=== PATIENT | male | born 1975 | race Caucasian/White ===

== ENCOUNTER → 2019-03-05 18:37 | Outpatient (CLI) | payer OTHER, SELFPAY ==
[2019-03-05 20:07] LABS: Amphetamine/Metha Screen,Urine Negative ng/mL (<1000); Barbiturates Screen,Urine Negative ng/mL (<200); Benzodiazepines Screen,Urine Positive ng/mL (<200); Cannabinoid Screen,Urine Negative ng/mL (<50); Cocaine Screen,Urine Negative ng/mL (<300); Methadone Screen,Urine Negative ng/mL (<300); Opiate Screen,Urine Negative ng/mL (<300); Phencyclidine Screen,Urine Negative ng/mL (<25)
== END ==
PROVIDERS: Visit Provider Nurse Practitioner Family
DX: Z79.899 Other long term (current) drug therapy (principal)
CPT/HCPCS: 80305

== ENCOUNTER → 2021-04-26 15:51 | Outpatient (CLI) | payer OTHER, SELFPAY ==
[2021-04-26 16:57] LABS: Basophils # 0.1 K/mm3 (0-0.2); Basophils % 0.7 % (0.1-2.0); Eosinophils # 0.1 K/mm3 (0.0-0.4); Eosinophils % 0.7 % (0.1-12.0); Hematocrit 42.4 % (42.0-52.0); Hemoglobin 14.3 g/dL (14.1-18.0); Lymphocytes # 1.9 K/mm3 (0.7-4.5); Lymphocytes % 21.9 % (10-50); Mean Corpuscular HGB Conc 33.7 g/dL (31.8-35.4); Mean Corpuscular Hemoglobin 30.6 pg (27.0-31.2); Mean Corpuscular Volume 90.9 fl (80-94); Mean Platelet Volume 8.2 fl (7.4-10.4); Monocytes # 0.5 K/mm3 (0.1-1.0); Monocytes % 5.7 % (1.7-9.3); Platelet Count 258 K/mm3 (142-424); Red Blood Count 4.66 M/mm3 (4.60-6.20); Red Cell Distribution Width 13.5 % (11.5-17.5); White Blood Count 8.5 K/mm3 (4.8-10.8)
[2021-04-26 18:50] LABS: Alanine Aminotransferase 45 U/L (12-78); Albumin Level 4.6 g/dl (3.5-5.0); Albumin/Globulin Ratio 1.8 (1.1-1.8); Alkaline Phosphatase 63 U/L (38-126); Anion Gap 16.7 mEq/L (5-15); Aspartate Amino Transferase 42 U/L (17-59); Bilirubin,Total 0.5 mg/dl (0.2-1.3); Blood Urea Nitrogen 12 mg/dl (9-20); Calcium 9.2 mg/dl (8.4-10.2); Carbon Dioxide 31 mmol/L (22.0-30.0); Chloride 104 mmol/L (98-107); Chol/HDL Ratio 3.6 (1-3.5); Cholesterol 227 mg/dl (140-200); Estimated Glomerular Filt Rate 72 ml/min (>60); GFR (African American) 87 ML/MIN (>60); Globulin 2.6 g/dL (1.3-3.2); Glucose 78 mg/dl (74-100); HDL Cholesterol 63 mg/dl (40-60); Potassium 4.7 mmoL/L (3.5-5.1); Sodium 147 mmol/L (136-145); Total Protein,Serum 7.2 g/dl (6.3-8.2); Triglycerides 172 mg/dl (30-150); VLDL Cholesterol 34 mg/dL (0-40)
[2021-04-26 19:02] LABS: Direct LDL Cholesterol 149.11 mg/dL (100-129)
[2021-04-26 19:03] LABS: 25-OH Vitamin D, Total 25.6 ng/mL (30-100)
[2021-04-26 19:07] LABS: T4 (Thyroxine) 6.3 ug/dl (5.53-11.0)
[2021-04-26 19:20] LABS: Thyroid Stimulating Hormone 4.19 uIU/mL (0.465-4.68)
== END ==
PROVIDERS: Visit Provider Nurse Practitioner Family
DX: F41.9 Anxiety disorder, unspecified (principal); R53.83 Other fatigue; E55.9 Vitamin D deficiency, unspecified
CPT/HCPCS: 36415; 80053; 80061; 82306; 84436; 84443; 85025

== ENCOUNTER 2021-05-29 12:22 | Emergency (ER) | payer OTHER, SELFPAY ==
[2021-05-29 12:56] VITALS: BP 164/101; PULSE 70; RESP 14; TEMP 36.7; O2SAT 100; BMI 27.4
--- NOTE | 2021-05-29 13:09 | HMH.EDUTC ---
[facility] [place] Clinical Impression: Left otitis media Qualifiers: Otitis media type: suppurative Chronicity: acute Recurrence: non-recurrent Spontaneous tympanic membrane rupture: without spontaneous rupture Qualified Code(s): H66.002 - Acute suppurative otitis media without spontaneous rupture of ear drum, left ear Disposition: Home, Self-Care Condition on Discharge: Good Instructions: DI for Otitis Media (Middle Ear Infection)-Child Prescriptions: Fluticasone Propionate [Flonase 50mcg nasal spray 16gm] 1 spr NS BID 14 Days #1 ml Transmission Status: Pending to [facility] # Cefdinir [Omnicef 300mg Capsule] 300 mg PO BID #20 cap Transmission Status: Pending to [facility] # predniSONE [Prednisone 20mg Tab] 20 mg PO BID 5 Days #10 tab Transmission Status: Pending to [facility] # Pseudoephedrine HCl [Sudafed 24-Hour] 1 tab PO DAILY 14 Days #14 tab Transmission Status: Pending to [facility] # Referrals: Mike Bobo MD [Primary Care Provider] - Time of Disposition: 13:21 Medical Decision Making - Garett Inquiry Pt receiving controlled substance: No Vital Signs: 05/29/21 12:56 Temperature 98.1 F Temperature Source Oral Pulse Rate [Left] 70 Respiratory Rate 14 Blood Pressure [Right Arm] 164/101 H Blood Pressure Mean [Right Arm] 122 02 Sat by Pulse Oximetry 100 [facility] [place] - General Stated complaint: left ear pain, dizzy Time Seen by Provider: 05/29/21 13:10 Mode of Arrival: Ambulatory Source of Information: Patient Limitations: No Limitations Description of Symptoms (Recalled from Triage Doc. by RN): L ear loss of hearing and pain HEENT Symptoms (Recalled from RN notes): Yes (L ear pain and hearing loss) Resp Symptoms (Recalled from RN notes): No Skin Symptoms (Recalled from RN notes): No MS Symptoms (Recalled from RN notes): No Functional Status (Recalled from RN notes): na - History of Present Illness Provider Complaint: Left ear pain for a while . Ruptured left ear drum a year and a half ago and it hasn't been the same since. Ear is painful, feels a lot of pressure, and can't hear. Onset (ago): day(s) (3) Relieving factors: none Exacerbating factors: none Associated symptoms: denies other symptoms Treatments prior to arrival: none - Related Data Previous Rx's Medication Instructions Recorded nystatin 100,000 unit/gram topical 1 applic TOPICAL BID #30 g 11/29/20 ointment ergocalciferol (vitamin D2) 1,250 50,000 unit PO QWEEK #7 cap 05/10/21 mcg (50,000 unit) capsule chlordiazepoxide HCl 10 mg capsule 10 mg PO Q8H #90 cap 05/25/21 tramadol 50 mg tablet 100 mg PO TID #180 tab 05/25/21 Cefdinir [Omnicef 300mg Capsule] 300 mg PO BID #20 cap 05/29/21 Fluticasone Propionate [Flonase 1 spr NS BID 14 Days #1 ml 05/29/21 50mcg nasal spray 16gm] Pseudoephedrine HCl [Sudafed 1 tab PO DAILY 14 Days #14 tab 05/29/21 24-Hour] predniSONE [Prednisone 20mg 20 mg PO BID 5 Days #10 tab 05/29/21 Tab] Allergies Allergy/AdvReac Type Severity Reaction Status Date / Time No Known Allergies Allergy Verified 05/25/21 16:30 - Worker's Comp Is this a Worker's Comp case?: No [facility] History - Hepatitis A Screen Drug use history?: No High risk sexual behaviors?: No History of sexually transmitted infection?: No Currently employed?: No Childcare worker?: No Do you have indoor plumbing?: Yes Do you have electricity?: Yes Attestation statement:: This patient has been screened for Hepatitis A risk factors. I have reviewed the patient's past medical history: Yes Medical History: Reports:: Anxiety Denies:: Cancer, Diabetes Mellitus Type 1, Diabetes Mellitus Type 2, Internal Pacemaker, MRSA Laterality Cases: Bilateral: Other Other Surgeries: Yes: Other. No: Pacemaker Amputation: No Fractures: No Comment: facial mandible reconstruction - Social History Smoking Status: Never smoker Tobacco Type: smokeless
[2021-05-29 13:30] VITALS: BP 164/104; PULSE 70; RESP 14; TEMP 36.7
== END 2021-05-29 13:34 | disposition home or self-care (01) ==
PROVIDERS: Emergency Provider Physician Assistant; PCP Emergency Medicine
DX: H66.002 Acute suppurative otitis media without spontaneous rupture of ear drum, left ear (principal); F41.9 Anxiety disorder, unspecified
CPT/HCPCS: 99202; G0463

== ENCOUNTER → 2021-08-15 15:28 | Outpatient (CLI) | payer OTHER, SELFPAY ==
--- NOTE | 2021-08-15 15:28 | CT_ITS ---
PROCEDURE: CT TEMPORAL BONE WITHOUT CLINICAL HISTORY: COMPARISON: No exams were available for comparison TECHNIQUE: Axial images obtained with sagittal and coronal reformats. All CT scans at the facility use one or more dose reduction, viz: automated exposure control, ma/kV adjustment per patient size (including targeted exams where dose is matched to indication, i.e. head), or iterative reconstruction technique. FINDINGS: There is opacification the antrum the left mastoid sinus. No scutal erosion. The left middle ear does not appear opacified. Minimal amount fluid noted in the inferior aspect of the left mastoid sinus. The right mastoid sinus and middle ear canal have an unremarkable appearance. The paranasal sinuses are unremarkable except for a small retention cyst or globule of mucus in the anterior aspect of the right sphenoid sinus. No sinus air-fluid level. The orbits, parotids and submandibular glands are unremarkable. There are few scattered small cervical nodes. Unremarkable right TMJ. Bone plate is present along posterior aspect of the left mandibular ramus.. IMPRESSION: Opacified left mastoid antrum and minimal opacification of the inferior tip of the left mastoid sinus without obvious scutal erosion. An early cholesteatoma would be a consideration. No bony erosion evident at this time. Dictated by: Robert Collins MD 08/16/2021 09:55 Robert Collins MD in [place] 08/16/2021 09:55
== END ==
PROVIDERS: PCP Emergency Medicine; Visit Provider Otolaryngology
DX: H60.542 Acute eczematoid otitis externa, left ear (principal); H66.002 Acute suppurative otitis media without spontaneous rupture of ear drum, left ear; H71.92 Unspecified cholesteatoma, left ear
CPT/HCPCS: 70480

== ENCOUNTER → 2021-10-17 09:20 | Outpatient (CLI) | payer OTHER, SELFPAY ==
[2021-10-18 06:59] LABS: Covid-19 Nasal PCR Sendout Lex NOT DETECTED
== END ==
PROVIDERS: PCP Nurse Practitioner Family; Visit Provider Nurse Practitioner
DX: Z20.822 Contact with and (suspected) exposure to COVID-19 (principal)
CPT/HCPCS: C9803; U0004; U0005

== ENCOUNTER 2021-10-26 15:37 | Outpatient (RCR) | payer OTHER, SELFPAY ==
--- NOTE | 2021-10-26 16:50 | HMH.PTOPEV ---
PT Outpatient Evaluation Rehab PT Outpatient Evaluation Start: 10/26/21 16:33 Freq: Status: Active Protocol: Document 10/26/21 16:33 JUDAH (Rec: 10/26/21 16:50 CHRISTINECARMITA [id number]) Electronically Signed By Cam Jose, PT 10/26/21 16:33 Outpatient Therapy Subjective History Subjective History This is the initial Physical Therapy vestibular evaluation. Pt is a 46 y/o male referred to PT for c/o feeling off balance and having c/o visual disturbances. Pt stateshe began having ear issues ~ 1 and 1/2 years ago, and in that time has ruptured an ear drum due to infection. Pt c/o feeling like he is moving when he is not, and has c/o visual sensitivity to movement and moving objects. Chief Complaint Other Symptoms Relieved By Rest/Positioning Symptoms Aggravated By Bending/Stooping,Physical Activity,Twisting,Walking Prior Functional Limitations None Current Functional Limitations Driving,Sleeping,Recreation Activity,Walking,Balance Balance Eval Chief Complaint vertigo No Did you feel dizzy, unsteady or faint? Yes Activity at onset movement Prior Functional Limitations Prior Functional [place] fully independent Current Functional Limitations Comment decreased stability Hx of Falls Hx Falls No Gait/Posture Asssessment General Gait Observation Wide Based Gait,Shuffling Step Assistive Devices None / NA Level of Transfer Assist Independent Hip Observation in Gait Swing Externally Rotated Hip Observation in Gait Stance Externally Rotated Ankle/Foot Observation in Gait Swing Decreased Foot Clearance Ankle/Foot Observation in Gait Stance Flatfoot Contact,Decreased Push Off Hip Posture Standing Position (L) Externally Rotated,(R) Externally Rotated Body Alignment Posture Rigid,Thoracic Kyphosis Nystagmus Nystagmus Description Left Direction,Geotropic,Right Torsion,Latency - Delayed Oculomotor Gaze Oculomotor Gaze Nml: Saccades Cover/Uncover Cross Cover Abn: Vergence Smooth Pursuit VOR Cancellation Dynamic Gait Index Test Protocol
== END 2021-10-26 15:40 | disposition home or self-care (01) ==
LOC: PT 15:37
PROVIDERS: PCP Nurse Practitioner Family; Visit Provider Otolaryngology
DX: H60.40 Cholesteatoma of external ear, unspecified ear (principal); H66.92 Otitis media, unspecified, left ear
CPT/HCPCS: 97163

== ENCOUNTER → 2021-12-14 15:16 | Outpatient (CLI) | payer OTHER, SELFPAY ==
--- NOTE | 2021-12-14 15:19 | CT_ITS ---
FINAL REPORT TECHNIQUE: Axial CT images were obtained through the TMJs/orbits/sella turcica/middle ear. Coronal and sagittal reformats were obtained. This study was performed with techniques to keep radiation doses as low as reasonably achievable (ALARA). Individualized dose reduction techniques using automated exposure control or adjustment of mA and/or kV according to the patient's size were employed. CLINICAL HISTORY: left om FINDINGS: Thin section axial CT images were performed through the TMJs and inner ear structures. Coronal and sagittal reformatted images were submitted.This study was performed with techniques to keep radiation doses as low as reasonably achievable (ALARA). Individualized dose reduction techniques using automated exposure control or adjustment of mA and/or kV according to the patient's size were employed. Right side: The internal auditory canal and external auditory canal are unremarkable. The middle ear structures are unremarkable. The ossicles are intact. The inner ear structures are intact. The mastoid antrum and mastoid air cells are normal. Left-sided colon the internal auditory canal and external auditory canal are unremarkable. There is abnormal soft tissue in the anterior aspect of the middle ear measuring 7 x 6 mm in maximal axial dimensions. This may represent localized mucosal thickening. This does not have the typical appearance of a cholesteatoma. There is erosion of the head of the malleus. The incus is intact. The mastoid antrum and mastoid air cells are normal. IMPRESSION: Abnormal soft tissue in the anterior aspect of the left middle ear may represent localized mucosal thickening. This does not have the typical appearance of cholesteatoma. Erosion of the head of the malleus of the left inner ear. Reviewed, Interpreted and Dictated by Angel Flores III, MD Transcribed by Den De La Cruz Authenticated by Angel Flores III, MD on 12/15/2021 08:13:19 AM [facility][1]
== END ==
PROVIDERS: PCP Nurse Practitioner Family; Visit Provider Otolaryngology
DX: H66.92 Otitis media, unspecified, left ear (principal)
CPT/HCPCS: 70480

== ENCOUNTER 2023-09-25 12:52 | Outpatient (CLI) | payer OTHER, SELFPAY ==
[2023-09-25 18:04] LABS: Barbiturates Screen,Urine Negative ng/ml (<200); Cannabinoid Screen,Urine Negative ng/ml (<50); Cocaine Screen,Urine Negative ng/ml (<300); Methadone Screen,Urine Negative ng/ml (<300); Opiate Screen,Urine Negative ng/ml (<300); Phencyclidine Screen,Urine Negative ng/ml (<25)
[2023-09-25 18:10] LABS: Benzodiazepines Screen,Urine Positive ng/ml (<200)
[2023-09-26 14:46] LABS: Amphetamine/Metha Screen,Urine Negative ng/ml (<1000)
== END 2023-09-25 23:59 ==
LOC: LAB.DROPOF 12:52
PROVIDERS: PCP Internal Medicine; Visit Provider Internal Medicine
DX: G89.29 Other chronic pain (principal); M54.9 Dorsalgia, unspecified
CPT/HCPCS: 80307

== ENCOUNTER 2023-10-29 08:23 | Emergency (ER) | payer OTHER, SELFPAY ==
[2023-10-29 08:24] VITALS: BP 165/123; PULSE 93; RESP 15; TEMP 37.3; O2SAT 95; BMI 28.4
[2023-10-29 08:38] VITALS: PULSE 96; O2SAT 96
--- NOTE | 2023-10-29 08:41 | XR_ITS ---
FINAL REPORT CLINICAL HISTORY: pain FINDINGS: RIGHT FOOT 3 views of the right foot were obtained. There is no acute fracture or dislocation. Visualized joint spaces are normally aligned. Soft tissues are unremarkable. IMPRESSION: No acute bony abnormality. Reviewed, Interpreted and Dictated by Angel Flores III, MD Transcribed by Jennifer Abbott Authenticated and [facility]
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
[2023-10-29 09:00] VITALS: BP 160/122; PULSE 78; RESP 20; O2SAT 97
[2023-10-29] MEDS: IBUPROFEN 800 MG TABLET PO (09:07)
[2023-10-29 09:30] VITALS: BP 179/125; PULSE 85; RESP 20; O2SAT 96
[2023-10-29 10:09] VITALS: BP 194/151; PULSE 90; RESP 16; TEMP 36.7
== END 2023-10-29 10:10 | disposition home or self-care (01) ==
PROVIDERS: Emergency Provider Emergency Medicine; PCP Internal Medicine
DX: M79.671 Pain in right foot (principal); I10 Essential (primary) hypertension
CPT/HCPCS: 73620; 99283

== ENCOUNTER 2023-12-10 12:49 | Outpatient (CLI) | payer OTHER, SELFPAY ==
[2023-12-10 13:00] LABS: Hemoglobin A1C 5.4 % (4.0-6.0)
[2023-12-10 13:09] LABS: Erythrocyte Sedimentation Rate 6 mm/hr (0-15)
[2023-12-10 13:11] LABS: Basophils # 0.1 K/mm3 (0-0.2); Eosinophils # 0.1 K/mm3 (0.0-0.4); Eosinophils % 1.4 % (0.1-12.0); Hematocrit 49.6 % (42.0-52.0); Hemoglobin 16.5 g/dL (14.1-18.0); Lymphocytes # 1.4 K/mm3 (0.7-4.5); Lymphocytes % 16.2 % (10-50); Mean Corpuscular HGB Conc 33.3 g/dL (31.8-35.4); Mean Corpuscular Hemoglobin 31.8 pg (27.0-31.2); Mean Corpuscular Volume 95.5 fl (80-94); Mean Platelet Volume 9.8 fl (7.4-10.4); Monocytes # 0.5 K/mm3 (0.1-1.0); Monocytes % 5.5 % (1.7-9.3); Neutrophils # 6.6 K/mm3 (1.8-7.8); Neutrophils % 75.9 % (37.0-80.0); Platelet Count 301 K/mm3 (142-424); White Blood Count 8.7 K/mm3 (4.8-10.8)
[2023-12-10 13:42] LABS: Chol/HDL Ratio 5.1 (1-3.5); Cholesterol 286 mg/dl (140-200); HDL Cholesterol 56 mg/dl (40-60); Triglycerides 152 mg/dl (30-150); VLDL Cholesterol 30 mg/dL (0-40)
[2023-12-10 13:47] LABS: Alanine Aminotransferase 51 U/L (12-78); Albumin Level 5.1 g/dl (3.5-5.0); Albumin/Globulin Ratio 1.8 (1.1-1.8); Alkaline Phosphatase 94 U/L (38-126); Anion Gap 16.7 mEq/L (5-15); Aspartate Amino Transferase 46 U/L (17-59); Bilirubin,Total 0.7 mg/dl (0.2-1.3); Blood Urea Nitrogen 10 mg/dl (9-20); Calcium 10.5 mg/dl (8.4-10.2); Carbon Dioxide 30 mmol/L (22.0-30.0); Chloride 103 mmol/L (98-107); Estimated Glomerular Filt Rate 89 ml/min (>60); GFR (African American) 108 ML/MIN (>60); Globulin 2.9 g/dL (1.3-3.2); Glucose 107 mg/dl (74-100); Magnesium 2.1 mg/dl (1.6-2.3); Potassium 4.7 mmoL/L (3.5-5.1); Sodium 145 mmol/L (136-145); Uric Acid 5.8 mg/dl (3.5-8.5)
[2023-12-10 14:13] LABS: Thyroid Stimulating Hormone 3.73 uIU/mL (0.465-4.68)
[2023-12-11 08:17] LABS: RA Latex Turbid. <10.0 IU/mL (<14.0)
[2023-12-11 12:18] LABS: Antinuclear Antibodies, IFA Negative (.)
[2023-12-18 15:41] LABS: HLA-B27 Negative (.)
== END 2023-12-10 23:59 ==
LOC: LAB.DROPOF 12:50
PROVIDERS: Internal Medicine; PCP Nurse Practitioner Family; Visit Provider Nurse Practitioner Family
DX: R25.2 Cramp and spasm (principal); M25.50 Pain in unspecified joint; L40.9 Psoriasis, unspecified; Z13.220 Encounter for screening for lipoid disorders; Z13.1 Encounter for screening for diabetes mellitus; Z13.29 Encounter for screening for other suspected endocrine disorder; Z79.899 Other long term (current) drug therapy
CPT/HCPCS: 80053; 80061; 83036; 83735; 84443; 84550; 85025; 85651; 86038; 86431; 86812

== ENCOUNTER 2024-02-01 14:41 | Outpatient (CLI) | payer OTHER, SELFPAY ==
--- NOTE | 2024-02-01 14:51 | XR_ITS ---
FINAL REPORT CLINICAL HISTORY: joint pain FINDINGS: Right hand Three views were obtained. There is no acute fracture or dislocation. There is chronic deformity of the 5th metacarpal consistent with prior fracture. The joint spaces appear normal. No soft tissue abnormality is identified. IMPRESSION: No acute process. Reviewed, Interpreted and Dictated by Angel Flores III, MD Transcribed by Sammi Blakely Authenticated and [facility]
--- NOTE | 2024-02-01 14:51 | XR_ITS ---
FINAL REPORT CLINICAL HISTORY: JOINT PAIN FINDINGS: Left hand Three views were obtained. There is no acute fracture or dislocation. The joint spaces appear normal. No soft tissue abnormality is identified. IMPRESSION: No acute process. Reviewed, Interpreted and Dictated by Angel Flores III, MD Transcribed by Sammi Blakely Authenticated and [facility]
--- NOTE | 2024-02-01 14:51 | XR_ITS ---
FINAL REPORT CLINICAL HISTORY: joint pain FINDINGS: Right foot Three views were obtained. There is no acute fracture or dislocation. There is mild hallux valgus deformity. The joint spaces appear normal. No soft tissue abnormality is identified. IMPRESSION: No acute process. Reviewed, Interpreted and Dictated by Angel Flores III, MD Transcribed by Sammi Blakely Authenticated and . [facility]
--- NOTE | 2024-02-01 14:51 | XR_ITS ---
FINAL REPORT CLINICAL HISTORY: joint pain FINDINGS: Left foot Three views were obtained. There is no acute fracture or dislocation. There is mild hallux valgus deformity. The joint spaces appear normal. No soft tissue abnormality is identified. IMPRESSION: No acute process. Reviewed, Interpreted and Dictated by Angel Flores III, MD Transcribed by Sammi Blakely Authenticated and [facility]
--- NOTE | 2024-02-01 14:53 | XR_ITS ---
FINAL REPORT CLINICAL HISTORY: JOINT PAIN FINDINGS: Sacroiliac joints Three views were obtained. There is no acute fracture or dislocation. The joint spaces appear normal. No soft tissue abnormality is identified. IMPRESSION: No acute process. Reviewed, Interpreted and Dictated by Angel Flores III, MD Transcribed by Sammi Blakely Authenticated and . [facility]
== END 2024-02-01 23:59 | disposition home or self-care (01) ==
LOC: RAD 14:42
PROVIDERS: PCP Nurse Practitioner Family; Visit Provider Nurse Practitioner Women's Health
DX: L40.9 Psoriasis, unspecified (principal); M25.50 Pain in unspecified joint; M25.60 Stiffness of unspecified joint, not elsewhere classified; M54.2 Cervicalgia; M54.9 Dorsalgia, unspecified
CPT/HCPCS: 72082; 72202; 73130; 73630

== ENCOUNTER 2024-03-02 12:18 | Emergency (ER) | payer OTHER, SELFPAY ==
--- NOTE | 2024-03-02 12:44 | EXP.UTC ---
Discharge Plan Disposition Patient Disposition: Home, Self-Care Condition: Good Prescriptions Prescriptions: New prednisone 10 mg tablet 10 mg PO BID 3 Days Qty: 6 0RF amoxicillin 875 mg tablet 875 mg PO Q12H Qty: 20 0RF ciprofloxacin-dexamethasone 0.3-0.1 % Drops,Suspension 2 drp Ear-Left BID 7 Days Qty: 1 0RF No Action tramadol 50 mg tablet 100 mg PO TID PRN (Reason: pain) Qty: 180 0RF losartan 50 mg tablet 50 mg PO DAILY atorvastatin 20 mg tablet 20 mg PO DAILY meloxicam 15 mg tablet 15 mg PO DAILY allopurinol 100 mg tablet 100 mg PO DAILY baclofen 10 mg tablet 10 mg PO DAILY Referrals Follow up/Referrals: Bailey Ibanez APRN [Primary Care Provider] - See instructions Activity Restrictions/Add. Instructions Additional Instructions/Restrictions: Drink plenty of fluids. Take tylenol for pain or fever. Take the medications as directed. Follow up with your regular doctor. GO TO THE ER FOR ANY WORSENING SYMPTOMS Follow up with your primary care physician regarding your elevated blood pressure. Clinical Impressions Clinical Impression: Acute left otitis media, Elevated blood pressure reading Instructions Patient Instructions: Middle Ear Infection, How to Use Ear Drops Discharge ED Provider: Cristian Chadwick [facility] [place] HPI General Stated complaint: fullness in ear Time Seen by Provider: 03/02/24 12:44 History of Present Illness Provider Complaint: He states that for the past 1 week he has had left ear pain and pressure. When he moves his head certain ways he has dizziness for a few seconds. He has been taking otc cold medications for these symptoms. He has a history of hypertension. He denies any chest pain and shortness of breath. Related Data Home Medications Medication Instructions Recorded Confirmed allopurinol 100 mg tablet 100 mg PO DAILY 03/02/24 03/02/24 atorvastatin 20 mg tablet 20 mg PO DAILY 03/02/24 03/02/24 baclofen 10 mg tablet 10 mg PO DAILY 03/02/24 03/02/24 losartan 50 mg tablet 50 mg PO DAILY 03/02/24 03/02/24 meloxicam 15 mg tablet 15 mg PO DAILY 03/02/24 03/02/24 Previous Rx's Medication Instructions Recorded tramadol 50 mg tablet 100 mg (2 x 50 mg) PO TID PRN pain 02/13/24 #180 tabs amoxicillin 875 mg tablet 875 mg PO Q12H #20 tabs 03/02/24 ciprofloxacin 0.3 %-dexamethasone 2 drp Ear-Left BID 7 days #1 ea 03/02/24 0.1 % ear drops,suspension prednisone 10 mg tablet 10 mg PO BID 3 days #6 tabs 03/02/24 Allergies Allergy/AdvReac Type Severity Reaction Status Date / Time No Known Allergies Allergy Verified 02/01/24 13:53 [facility] Disclaimer: The information contained in this section may have been updated after the patient was seen, as this information can be updated by other users. 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 Impacted cerumen of left ear Psoriasis Left otitis media Chronic back pain greater than 3 months duration Anxiety Excessive ear wax Surgical History History of mandibular surgery Social History Smoking Status: Never smoker alcohol intake: never substance use type: denies use current occupational status: employed Travel in the last 8 weeks: None household members: spouse housing: house caffeine: Yes ROS Obtained: Yes All systems reviewed & no additional complaints except as documented Constitutional Constitutional: Denies chills, Reports fever(s) and Reports poor appetite Eyes Eyes: Denies eye discharge ENT Ears, Nose, Mouth, and Throat: Denies ear discharge, Reports otalgia, Denies hearing loss, Denies sinus pain and Reports sore throat Cardiovascular Cardiovascular: Denies chest pain and Denies dyspnea Respiratory Respiratory: Denies chest congestion, Reports cough and Denies dyspnea Gastrointestinal Gastrointestingal: Denies abdominal pain, diarrhea, nausea or vomiting Musculoskeletal Musculoskeletal: Denies arthralgias Integumentary/Breasts Skin/Breast: Denies rash Physical Exam General General appearance: alert and in no apparent distress Head Head exam: atraumatic, normocephalic and normal inspection Eye Eye exam: Present normal appearance, PERRL and EOMI ENT ENT exam: Present normal oropharynx, mucous membranes moist and normal external ear exam Expanded ENT Exam TM/Canal exam: Left TM: effusion and Bilateral TM: erythema and bulging Neck Neck exam: Present normal inspection, full ROM and trachea midline; Absent meningismus or lymphadenopathy Chest Chest inspection: Present normal inspection and symmetric chest wall rise; Absent tenderness Respiratory Respiratory exam: Present normal lung sounds bilaterally; Absent respiratory distress Cardiovascular Cardiovascular exam: Present regular rate and normal rhythm; Absent JVD Abdominal Exam Abdominal exam: Present soft and normal bowel sounds; Absent distention, tenderness or guarding Extremities Exam Extremities exam: Present normal inspection, full ROM and normal capillary refill; Absent calf tenderness Back Exam Back exam: Present normal inspection; Absent tenderness Neurological Exam Neurological exam: Present alert and oriented X3 Psychiatric Psychiatric exam: Present normal affect and normal mood Skin Skin exam: Present warm, dry, intact and normal color Lymphatic Lymphatic Findings: no adenopathy Medical Decision Making Medical Records Medical records reviewed: No I reviewed the patient's medical records. [place]tt Inquiry Pt receiving controlled substance: No
[2024-03-02 12:45] VITALS: BP 189/125; PULSE 63; RESP 20; TEMP 36.9; O2SAT 98; BMI 28.7
[2024-03-02 13:00] VITALS: BP 189/114; PULSE 63; RESP 20; TEMP 36.9; O2SAT 98
== END 2024-03-02 13:02 | disposition home or self-care (01) ==
PROVIDERS: Emergency Provider Nurse Practitioner Family; PCP Nurse Practitioner Family
DX: H66.92 Otitis media, unspecified, left ear (principal); I10 Essential (primary) hypertension; R42 Dizziness and giddiness
CPT/HCPCS: 99212; 99214; G0463

== ENCOUNTER 2024-10-23 14:55 | Outpatient (CLI) | payer OTHER, SELFPAY ==
--- NOTE | 2024-10-23 14:56 | CT_ITS ---
FINAL REPORT TECHNIQUE: Thin section axial CT images of the temporal bones were obtained. Coronal reformatted images were also obtained.This study was performed with techniques to keep radiation doses as low as reasonably achievable (ALARA). Individualized dose reduction techniques using automated exposure control or adjustment of mA and/or kV according to the patient''s size were employed. CLINICAL HISTORY: .possible cholesteatoma COMPARISON: 12/14/2021 FINDINGS: Right temporal bone: The right mastoid air cells are well aerated. The ossicles appear intact. No fluid levels are seen. There is no abnormal soft tissue. The scutum appears intact. Left temporal bone: The previously noted abnormal soft tissue in the anterior medial cavity has resolved. The ossicles have an abnormal flattened appearance, similar to the prior study. There are no air-fluid levels. The left mastoid air cells are well aerated. There is no evidence of erosion of the scutum. Incidental note is made of a sideplate and screws securing the left mandible. IMPRESSION: Interval resolution of previously noted soft tissue anterior left middle ear cavity. Dysplastic flattened appearance of the left ossicle. Unclear if this is congenital or related to prior infection. Reviewed, Interpreted and Dictated by Tomas Siu MD Transcribed by Kellie Melendez Authenticated and [facility]
== END 2024-10-23 23:59 | disposition home or self-care (01) ==
LOC: RAD 14:55
PROVIDERS: PCP Nurse Practitioner Women's Health; Visit Provider Nurse Practitioner
DX: H60.502 Unspecified acute noninfective otitis externa, left ear (principal)
CPT/HCPCS: 70480

== ENCOUNTER 2024-12-08 10:28 | Outpatient (CLI) | payer OTHER, SELFPAY ==
[2024-12-08 12:54] LABS: Anti-Centromere B Antibodies ND; Anti-DNA (DS) Ab Qn ND; Anti-Jo-1 ND; Antichromatin Antibodies ND; Antiscleroderma-70 Antibodies ND; RNP Antibodies ND; Sjogren's Anti-SS-A ND; Sjogren's Anti-SS-B ND
[2024-12-08 13:18] LABS: Basophils # 0.1 K/mm3 (0-0.2); Eosinophils # 0.1 K/mm3 (0.0-0.4); Hematocrit 48.1 % (42.0-52.0); Hemoglobin 16.3 g/dL (14.1-18.0); Lymphocytes # 1.4 K/mm3 (0.7-4.5); Lymphocytes % 19.7 % (10-50); Mean Corpuscular HGB Conc 33.9 g/dL (31.8-35.4); Mean Corpuscular Hemoglobin 30.5 pg (27.0-31.2); Mean Corpuscular Volume 90.1 fl (80-94); Mean Platelet Volume 12.1 fl (7.4-10.4); Monocytes # 0.6 K/mm3 (0.1-1.0); Monocytes % 7.9 % (1.7-9.3); Neutrophils # 4.8 K/mm3 (1.8-7.8); Neutrophils % 69.1 % (37.0-80.0); Platelet Count 238 K/mm3 (142-424); Red Blood Count 5.34 M/mm3 (4.60-6.20); Red Cell Distribution Width 12.4 % (11.5-17.5); White Blood Count 6.9 K/mm3 (4.8-10.8)
[2024-12-08 14:02] LABS: Chloride 102 mmol/L (98-107); Sodium 139 mmol/L (136-145)
[2024-12-08 14:03] LABS: Potassium 4.4 mmoL/L (3.5-5.1)
[2024-12-08 14:05] LABS: Alanine Aminotransferase 60 U/L (12-78); Albumin/Globulin Ratio 2.2 (1.1-1.8); Alkaline Phosphatase 73 U/L (38-126); Anion Gap 14.4 mEq/L (5-15); Aspartate Amino Transferase 42 U/L (17-59); Blood Urea Nitrogen 10 mg/dl (9-20); Carbon Dioxide 27 mmol/L (22.0-30.0); Estimated Glomerular Filt Rate 102 ml/min (>60); GFR (African American) 123 ML/MIN (>60); Globulin 2.3 g/dL (1.3-3.2); Total Protein,Serum 7.3 g/dl (6.3-8.2)
[2024-12-08 14:06] LABS: Calcium 9.7 mg/dl (8.4-10.2); Chol/HDL Ratio 4.1 (1-3.5); Cholesterol 194 mg/dl (140-200); Glucose 86 mg/dl (74-100); HDL Cholesterol 47 mg/dl (40-60); Triglycerides 207 mg/dl (30-150); VLDL Cholesterol 41 mg/dL (0-40)
[2024-12-08 14:10] LABS: 25-OH Vitamin D, Total 51.3 ng/mL (30-100)
[2024-12-08 14:12] LABS: C-Reactive Protein 0.5 mg/L (0-4)
[2024-12-08 14:17] LABS: Direct LDL Cholesterol 104.27 mg/dL (100-129)
[2024-12-08 14:40] LABS: Ferritin 109 ng/ml (17.9-464)
[2024-12-08 16:44] LABS: Vitamin B12 464 pg/mL (239-931)
[2024-12-08 19:31] LABS: Hemoglobin A1C 5.3 % (4.0-6.0)
[2024-12-09 11:22] LABS: Antinuclear Antibodies (ANA) Negative (Negative)
[2024-12-11 16:24] LABS: Cortisol,AM 10.5 ug/dL (6.2-19.4)
== END 2024-12-08 23:59 | disposition home or self-care (01) ==
LOC: LAB.DROPOF 12-09 13:14
PROVIDERS: PCP Nurse Practitioner Family; Visit Provider Nurse Practitioner Family
DX: I10 Essential (primary) hypertension (principal); R42 Dizziness and giddiness
CPT/HCPCS: 80053; 80061; 82306; 82533; 82607; 82728; 83036; 83735; 85025; 86038; 86140

== ENCOUNTER 2024-12-15 10:15 | Outpatient (CLI) | payer OTHER, SELFPAY ==
--- NOTE | 2024-12-15 10:30 | MR_ITS ---
FINAL REPORT TECHNIQUE: Multiplanar MR, without and with gadolinium enhancement CLINICAL HISTORY: dizziness, visual disturbance x 2 weeks FINDINGS: Diffusion sequences show no signal abnormality to indicate acute infarct. No mass, hemorrhage or edema is seen. Ventricles are normal. Major vascular flow voids are intact. Following contrast administration, no mass or abnormal enhancement is seen. IMPRESSION: Unremarkable MR evaluation the brain with contrast Reviewed, Interpreted and Dictated by Carmen Hutson MD Transcribed by Jennifer Abbott Authenticated and [facility]
[2024-12-15] MEDS: GADOTERIDOL INJ 20ML SYRINGE 17 ML IV (11:04)
[2024-12-15] MEDS: SODIUM CHLORIDE 0.9% 10ML SYR (RAD ONLY) 10 ML IV (11:04)
== END 2024-12-15 23:59 | disposition home or self-care (01) ==
LOC: RAD 10:16
PROVIDERS: Visit Provider Nurse Practitioner Family
DX: R42 Dizziness and giddiness (principal); H53.9 Unspecified visual disturbance
CPT/HCPCS: 70553; A9576

== ENCOUNTER 2024-12-17 14:57 | Outpatient (CLI) | payer OTHER, SELFPAY ==
--- NOTE | 2024-12-17 15:00 | CA_ITS ---
FINAL REPORT TECHNIQUE: Color and spectral Doppler analysis CLINICAL HISTORY: BLE PAIN,HAIR LOSS,SPASMS FINDINGS: Right lower extremity, flow velocities (cm per second): Common femoral artery: 66 Proximal SFA: 76 Distal SFA: 67 Popliteal: 50 to Anterior tibial artery: 47 Posterior tibial artery: 70 Left lower extremity, flow velocities (cm per second): Common femoral artery: 86 Proximal SFA: 79 Distal SFA: 57 Popliteal: 43 Anterior tibial artery: 64 Posterior tibial artery: 64 Waveforms are noted to be biphasic and triphasic. No levels of stenosis or occlusion are identified. Mild diffuse plaque disease is present. Reviewed, Interpreted and Dictated by Carmen Hutson MD Transcribed by Jennifer Abbott Authenticated and [facility]
== END 2024-12-17 23:59 | disposition home or self-care (01) ==
LOC: RT 14:57
PROVIDERS: PCP Nurse Practitioner Family; Visit Provider Nurse Practitioner Family
DX: M79.604 Pain in right leg (principal); M79.605 Pain in left leg; L65.9 Nonscarring hair loss, unspecified
CPT/HCPCS: 93925